=== PATIENT | female | born 1965 | race Caucasian/White ===

== ENCOUNTER 2020-02-29 07:15 | Day surgery (SDC) | payer MEDICAID ==
[2020-02-25 14:49] LABS: BASOPHILS % (AUTO) 0.8 % (0-1); EOSINOPHILS # (AUTO) 0.1 X10'3 (0-0.9); EOSINOPHILS % (AUTO) 1.1 % (0-6); LYMPHOCYTES % (AUTO) 33.9 % (21-51); MEAN CORPUSCULAR HEMOGLOBIN 27.9 PG (27.0-31.0); MEAN CORPUSCULAR HGB CONC 32.6 g/dL (33.0-36.5); MEAN CORPUSCULAR VOLUME 85.5 FL (78-98); MONOCYTES # (AUTO) 0.6 X10'3 (0-0.9); NEUTROPHILS # (AUTO) 3.2 X10'3 (1.8-7.7); NEUTROPHILS % (AUTO) 54.2 % (42-75); PRE OP HEMOGLOBIN 11.8 g/dL (12.0-16.0); PRE OP PLATELET COUNT 267 X10'3 (140-440); RED BLOOD COUNT 4.21 X10'6 (4.20-5.60); RED CELL DISTRIBUTION WIDTH 13.3 % (11.5-14.5)
[2020-02-25 15:07] LABS: ALBUMIN 4.1 G/DL (3.4-5.0); ALBUMIN/GLOBULIN RATIO 1.2 (1.1-1.5); ALKALINE PHOSPHATASE 44 IU/L (46-116); BLOOD UREA NITROGEN 34 MG/DL (7-18); CALCIUM 9.3 MG/DL (8.5-10.1); CHLORIDE 102 MMOL/L (99-107); CREATININE 1.31 MG/DL (0.40-0.90); PRE OP ALT 33 U/L (30-65); PRE OP ANION GAP 5 (8-16); PRE OP AST 24 U/L (10-37); PRE OP BILIRUB, TOTAL 0.2 MG/DL (0.0-1.0); PRE OP GLUCOSE 100 MG/DL (70-104); PRE OP SODIUM 138 MMOL/L (135-145); TOTAL CARBON DIOXIDE 30.9 MMOL/L (24-32); TOTAL PROTEIN 7.5 G/DL (6.4-8.2); eGFR 43 ML/MIN
[~2020-02-29] VITALS: Ht 149.9 cm; Wt 113.9 kg
[~2020-02-29 07:15] MED LIST: ARIP30TA8 IM; ASPI-1264 PO; ATOR10TA70 PO; BUPIVAcaine/PF 2.5mg/ml (0.25%) 10ml vial ONE; FENO134C PO; FERR-39 PO; GABA600T13 PO; HYDR-3686 PO; HYDR25TA4 PO; LEVO175T7 PO; LISI10TA4 PO; MELO-102 PO; OMEP-50 PO; QUET300T19 PO; ROPI0.5T4 PO; VITAMIN D; ceFAZolin 2gm in dextrose, iso 50 ML IV ONE; famotidine 20mg tablet PO ONE; ringers solution, lacted 1,000 ML IV SCH
[2020-02-29] MEDS ORDERED: LIDOcaine 0.5% (5mg/ml) 50ml vial ONE (07:27)
[2020-02-29] MEDS ORDERED: LIDOcaine 1% (10mg/ml) 2ml vial ONE (07:50)
[2020-02-29] MEDS ORDERED: ondansetron/PF 4mg/2ml inj IV PRN (08:45)
[2020-02-29] MEDS ORDERED: labetalol 20mg/4ml (5mg/ml) syringe IV PRN (08:45)
[2020-02-29] MEDS ORDERED: fentaNYL/PF 50MCG/1 ML 2ML syringe IV PRN ×2 (08:45)
[2020-02-29] MEDS ORDERED: ringers solution, lacted 1,000 ML IV SCH (08:45)
[2020-02-29] MEDS ORDERED: HYDROmorphone/PF 0.2 MG/ML SYRINGE IV PRN ×2 (08:45)
[2020-02-29] MEDS ORDERED: hydrALAZINE 20mg/ml inj. IV PRN (08:45)
[2020-02-29 08:53] VITALS: BP 111/75
[2020-02-29] MEDS ORDERED: fentaNYL/PF 50MCG/1 ML 2ML syringe ONE ×2 (11:56)
[2020-02-29] MEDS ORDERED: MIDAZolam 5mg/5ml vial ONE (11:56)
[2020-02-29] MEDS ORDERED: ketorolac trometh. 30mg/ml inj. ONE (11:58)
[2020-02-29 12:25] VITALS: BP 102/71
--- NOTE | 2020-02-29 12:25 | NUR ---
Received from OR via BED, accompanied by Anesthesiologist DR LOVETT and report given by Anesthesiolgist. PATIENT A&OX4, DENIES PAIN, V/S WNL, NEUROVASCULAR CHECKS INTACT, 20G PIV RUE, SCD ON, DRESSING TO LEFT WRIST CDI ELEVATED WITH ICEBAG APPLIED
[2020-02-29 12:35] VITALS: BP 117/72
[2020-02-29 12:45] VITALS: BP 113/78
[2020-02-29 12:49] VITALS: BP 116/74
== END 2020-02-29 12:55 | disposition home or self-care (01) ==
LOC: PAS 07:15
PROVIDERS: ATTEND Orthopaedic Surgery Hand Surgery
DX: G56.01 Carpal tunnel syndrome, right upper limb (principal); Z20.828 Contact with and (suspected) exposure to other viral communicable diseases; M19.90 Unspecified osteoarthritis, unspecified site; F12.90 Cannabis use, unspecified, uncomplicated; I10 Essential (primary) hypertension; J44.9 Chronic obstructive pulmonary disease, unspecified; E66.01 Morbid (severe) obesity due to excess calories; Z68.43 Body mass index [BMI] 50.0-59.9, adult; Z79.899 Other long term (current) drug therapy; Z88.5 Allergy status to narcotic agent; Z98.890 Other specified postprocedural states; Z96.652 Presence of left artificial knee joint; Z87.891 Personal history of nicotine dependence
CPT/HCPCS: 29848; 36415; 80053; 82948; 85025; 87635; 93005; J1885; J2001; J2250; J3010; J3490; A4215; J7120

== ENCOUNTER 2020-04-04 06:29 | Day surgery (SDC) | payer MEDICAID ==
[2020-03-28 14:50] LABS: BASOPHILS # (AUTO) 0.1 X10'3 (0-0.2); BASOPHILS % (AUTO) 1.2 % (0-1); EOSINOPHILS # (AUTO) 0.1 X10'3 (0-0.9); EOSINOPHILS % (AUTO) 0.8 % (0-6); LYMPHOCYTES # (AUTO) 1.9 X10'3 (1.1-4.8); LYMPHOCYTES % (AUTO) 28.4 % (21-51); MEAN CORPUSCULAR HEMOGLOBIN 27.5 PG (27.0-31.0); MEAN CORPUSCULAR HGB CONC 32.5 g/dL (33.0-36.5); MEAN CORPUSCULAR VOLUME 84.5 FL (78-98); MONOCYTES # (AUTO) 0.7 X10'3 (0-0.9); MONOCYTES % (AUTO) 10.5 % (2-12); NEUTROPHILS # (AUTO) 3.9 X10'3 (1.8-7.7); NEUTROPHILS % (AUTO) 59.1 % (42-75); PRE OP HEMATOCRIT 37.9 % (35.0-45.0); PRE OP HEMOGLOBIN 12.3 g/dL (12.0-16.0); PRE OP PLATELET COUNT 267 X10'3 (140-440); RED BLOOD COUNT 4.48 X10'6 (4.20-5.60); RED CELL DISTRIBUTION WIDTH 13.1 % (11.5-14.5)
[2020-03-28 14:54] LABS: ALBUMIN 4.3 G/DL (3.4-5.0); ALBUMIN/GLOBULIN RATIO 1.3 (1.1-1.5); ALKALINE PHOSPHATASE 53 IU/L (46-116); BLOOD UREA NITROGEN 35 MG/DL (7-18); BUN/CREATININE RATIO 26.3 (6.6-38.0); CHLORIDE 101 MMOL/L (99-107); CREATININE 1.33 MG/DL (0.40-0.90); PRE OP ALT 31 U/L (30-65); PRE OP ANION GAP 8 (8-16); PRE OP AST 23 U/L (10-37); PRE OP BILIRUB, TOTAL 0.4 MG/DL (0.0-1.0); PRE OP GLUCOSE 86 MG/DL (70-104); PRE OP POTASSIUM 3.9 MMOL/L (3.4-5.1); PRE OP SODIUM 140 MMOL/L (135-145); TOTAL CARBON DIOXIDE 31.3 MMOL/L (24-32); TOTAL PROTEIN 7.7 G/DL (6.4-8.2); eGFR 42 ML/MIN
[~2020-04-04] VITALS: Ht 149.9 cm; Wt 113.4 kg
[~2020-04-04 06:29] MED LIST changes: +ALBU8HFA PO; -BUPIVAcaine/PF 2.5mg/ml (0.25%) 10ml vial ONE
[2020-04-04] MEDS ORDERED: BUPIVAcaine/PF 2.5mg/ml (0.25%) 10ml vial ONE (06:48)
[2020-04-04 07:00] VITALS: BP 116/73
[2020-04-04] MEDS ORDERED: LIDOcaine 0.5% (5mg/ml) 50ml vial ONE (07:12)
[2020-04-04] MEDS ORDERED: sevoflurane 250ml liquid IH ONE (07:52)
[2020-04-04] MEDS ORDERED: midazolam 2 mg/2 ml injection ONE (07:54)
[2020-04-04] MEDS ORDERED: fentaNYL/PF 50MCG/1 ML 2ML syringe ONE (07:54)
[2020-04-04] MEDS ORDERED: propofol inj 20 ML IV ONE (08:07)
[2020-04-04 08:18] VITALS: BP 146/92
--- NOTE | 2020-04-04 08:18 | NUR ---
ARRIVED IN PACU VIA GURNEY FROM OR WITH O2 ON AND DR Huynh IN ATTENDANCE. REPORT RECEIVED. VS STABLE. FINGERS WARM AND PINK. SLEEPY BUT AROUSES EASILY
[2020-04-04] MEDS ORDERED: proCHLORperazine 10 MG/2 ml inj IV PRN (08:25)
[2020-04-04] MEDS ORDERED: meperidine/PF 25mg/ml syringe IV PRN ×3 (08:25)
[2020-04-04] MEDS ORDERED: ringers solution, lacted 1,000 ML IV SCH (08:25)
[2020-04-04] MEDS ORDERED: ondansetron/PF 4mg/2ml inj IV PRN (08:25)
[2020-04-04 08:28] VITALS: BP 138/103
[2020-04-04 08:38] VITALS: BP 142/100
[2020-04-04 08:48] VITALS: BP 145/98
[2020-04-04 08:58] VITALS: BP 145/95
--- NOTE | 2020-04-04 09:07 | NUR ---
UP STEADY ON FEET. DRESSED WITHOUT ASSISTANCE
--- NOTE | 2020-04-04 09:13 | NUR ---
TO CAR ASSISTED BY NURSE WITHOUT INCIDENT
== END 2020-04-04 09:13 | disposition home or self-care (01) ==
LOC: PAS 06:29
PROVIDERS: ATTEND Orthopaedic Surgery Hand Surgery
DX: G56.02 Carpal tunnel syndrome, left upper limb (principal); Z20.828 Contact with and (suspected) exposure to other viral communicable diseases; I10 Essential (primary) hypertension; M19.90 Unspecified osteoarthritis, unspecified site; F32.9 Major depressive disorder, single episode, unspecified; J44.9 Chronic obstructive pulmonary disease, unspecified; E78.00 Pure hypercholesterolemia, unspecified; E03.9 Hypothyroidism, unspecified; E66.9 Obesity, unspecified; Z68.43 Body mass index [BMI] 50.0-59.9, adult; F12.90 Cannabis use, unspecified, uncomplicated; Z88.5 Allergy status to narcotic agent; Z79.899 Other long term (current) drug therapy; Z98.890 Other specified postprocedural states; Z98.51 Tubal ligation status; Z87.891 Personal history of nicotine dependence; Z88.8 Allergy status to other drugs, medicaments and biological substances; Z96.652 Presence of left artificial knee joint; Z72.89 Other problems related to lifestyle
CPT/HCPCS: 36415; 64721; 80053; 82948; 85025; 87635; J2001; J2250; J2704; J3010; J3490; A4215; A6222; A7000; J7120